=== PATIENT | female | born 1970 | race African-American/Black ===

== ENCOUNTER 2018-01-09 19:46 | Emergency (ER) | payer BC ==
[~2018-01-09] VITALS: Ht 167.6 cm; Wt 99.8 kg
[2018-01-09] MEDS ORDERED: LEVOTHYROXINE125 MCG ORAL (19:48)
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
[2018-01-09 20:00] VITALS: BP 162/85
[2018-01-09] MEDS ORDERED: Ketorolac 60mg Inj IM ONE (20:00)
[2018-01-09] MEDS ORDERED: IBUPROFEN600 MG ORAL (21:39)
[2018-01-09] MEDS ORDERED: ROBAXIN500 MG PO (21:39)
[2018-01-09 22:08] VITALS: BP 135/82
[2018-01-09 22:10] VITALS: BP 135/82
--- NOTE | 2018-01-10 11:03 | Diagnostic Imaging Report ---
Indication: Neck Pain Findings: 5 views of the cervical spine were obtained. No fracture or malalignment identified. There is straightening of the cervical spine which may be due to muscle spasm. Open-mouth view is negative. The left neural foramina appear widely patent. The right neural foramina are not visualized well due to a suboptimal oblique view. IMPRESSION: No acute injury. Suboptimal evaluation of the right neural foramen
== END 2018-01-09 22:11 | disposition home or self-care (01) ==
LOC: EDBD 19:46 → EMR 20:16
DX: S16.1XXA Strain of muscle, fascia and tendon at neck level, initial encounter (principal); V43.52XA Car driver injured in collision with other type car in traffic accident, initial encounter; Y92.488 Other paved roadways as the place of occurrence of the external cause; E03.9 Hypothyroidism, unspecified; I10 Essential (primary) hypertension; Z88.2 Allergy status to sulfonamides; Z88.3 Allergy status to other anti-infective agents
CPT/HCPCS: 72050; 81025; 96372; 99283